=== PATIENT | male | born 1990 | race Caucasian/White ===

== ENCOUNTER 2020-04-11 12:45 | Emergency (ER) | payer MEDICAID ==
[~2020-04-11] VITALS: Ht 175.3 cm; Wt 77.1 kg
[2020-04-11 13:37] VITALS: Ht 175.3 cm; Wt 77.1 kg
== END 2020-04-11 14:28 | disposition home or self-care (01) ==
LOC: ED 12:45
DX: S00.83XA Contusion of other part of head, initial encounter (principal); W22.8XXA Striking against or struck by other objects, initial encounter; Y93.89 Activity, other specified; Y92.89 Other specified places as the place of occurrence of the external cause; Y99.8 Other external cause status